=== PATIENT | female | born 1970 | race Two or more races ===

== ENCOUNTER 2017-09-02 09:30 | Inpatient (IN) | payer OTHER ==
[~2017-09-02] VITALS: Ht 165.1 cm; Wt 67.1 kg
[~2017-09-02 09:30] MED LIST: ULTRACET PO
[2017-09-10] MEDS ORDERED: PERCOCET 5-3251 EACH PO (11:22)
[2017-09-10] MEDS ORDERED: INTESTINEX680 M1 PO (11:23)
== END 2017-09-10 11:50 | disposition home health service (06) | DRG 331 ==
LOC: SURG 09:30 → O/R 09-05 08:06 → SURG 09-05 09:30
PROVIDERS: Surgery
PROC: 0DTP4ZZ Resection of Rectum, Percutaneous Endoscopic Approach (ICD-10-PCS; 2017-09-05)
PROC: 07TC4ZZ Resection of Pelvis Lymphatic, Percutaneous Endoscopic Approach (ICD-10-PCS; 2017-09-05)
PROC: 0D1B4Z4 Bypass Ileum to Cutaneous, Percutaneous Endoscopic Approach (ICD-10-PCS; 2017-09-05)
PROC: 0DJD8ZZ Inspection of Lower Intestinal Tract, Via Natural or Artificial Opening Endoscopic (ICD-10-PCS; 2017-09-05)
PROC: 0DTN4ZZ Resection of Sigmoid Colon, Percutaneous Endoscopic Approach (ICD-10-PCS; principal; 2017-09-05 19:45)
DX: C20 Malignant neoplasm of rectum (principal); R59.0 Localized enlarged lymph nodes; R73.01 Impaired fasting glucose

== ENCOUNTER 2018-01-25 15:45 | Inpatient (IN) | payer OTHER ==
[~2018-01-25] VITALS: Ht 165.1 cm; Wt 65.3 kg
[~2018-01-25 15:45] MED LIST changes: +INTESTINEX680 M1 PO; +PERCOCET 5-3251 EACH PO
[2018-02-09] MEDS ORDERED: Intestinex CAP PO (18:39)
[2018-02-09] MEDS ORDERED: PERCOCET 5-3251 EACH PO (18:39)
[2018-02-09] MEDS ORDERED: NEURONTIN300 MG PO (18:45)
== END 2018-02-09 19:27 | disposition home or self-care (01) | DRG 331 ==
LOC: SURG 02-06 05:55 → O/R 02-06 05:55 → SURG 02-06 10:25 → SURH 02-06 15:40 → SURG 02-09 19:27
PROVIDERS: Surgery
PROC: 05PY33Z Removal of Infusion Device from Upper Vein, Percutaneous Approach (ICD-10-PCS; 2018-02-06)
PROC: 0DQB4ZZ Repair Ileum, Percutaneous Endoscopic Approach (ICD-10-PCS; principal; 2018-02-06 21:45)
PROC: 0JPT3WZ Removal of Totally Implantable Vascular Access Device from Trunk Subcutaneous Tissue and Fascia, Percutaneous Approach (ICD-10-PCS; 2018-02-06 21:45)
DX: C20 Malignant neoplasm of rectum (principal); Z43.2 Encounter for attention to ileostomy; R73.01 Impaired fasting glucose; D64.89 Other specified anemias

== ENCOUNTER 2018-10-10 06:00 | Day surgery (SDC) | payer OTHER ==
[~2018-10-10 06:00] MED LIST changes: +Intestinex CAP PO; +NEURONTIN300 MG PO
== END 2018-10-10 09:40 | disposition home or self-care (01) ==
LOC: AMB-ENDOS 06:00
DX: Z08 Encounter for follow-up examination after completed treatment for malignant neoplasm (principal); Z85.048 Personal history of other malignant neoplasm of rectum, rectosigmoid junction, and anus

== ENCOUNTER 2019-10-30 06:00 | Day surgery (SDC) | payer OTHER | END 2019-10-30 12:30 | disposition home or self-care (01) | LOC: AMB-ENDOS 06:00 | PROVIDERS: ATTEND Surgery | DX: K62.89 Other specified diseases of anus and rectum (principal) ==

== ENCOUNTER 2020-10-07 06:30 | Day surgery (SDC) | payer OTHER | END 2020-10-07 11:05 | disposition home or self-care (01) | LOC: AMB-ENDOS 06:30 | PROVIDERS: ATTEND Surgery | DX: K62.89 Other specified diseases of anus and rectum (principal); Z20.822 Contact with and (suspected) exposure to COVID-19 ==